=== PATIENT | female | born 1990 | race Caucasian/White ===

== ENCOUNTER → 2016-11-11 | Day surgery (SDC) | payer BC ==
[~2016-11-11] VITALS: Ht 168.9 cm; Wt 110.6 kg
[~2016-11-11] MED LIST: BUPIVACAINE/EPINEPHRINE 0.5% 50 ML VIAL ONE; BUPIVACAINE/EPINEPHRINE 0.5% PF 30 ML VIAL ONE; CHLORHEXIDINE GLUCONATE 2 % 1 PACK (2 CLOTHS) TOPICAL PRN; DEXAMETHASONE SOD PHOS 4 MG/ML VIAL ONE; DO NOT ADM ANY ANTICOAGULANT DRUGS PRN; FAMOTIDINE 20 MG/2 ML VIAL ONE; INSULIN HUMAN REGULAR 1,000 UNITS/10 ML VIAL SQ PRN; KETOROLAC TROMETHAMINE 60 MG/2 ML (IM) VIAL IM ONE; LACTATED RINGER'S 1000 ML INJ 1,000 ML IV SCH; LORTA5 PO; METOPROLOL TARTRATE 25 MG TAB PO PRN; MIDAZOLAM HCL 2 MG/2 ML VIAL ONE; NEOSTIGMINE 3 MG/3 ML SYR IV ONE; ONDANSETRON HCL 4 MG/2 ML VIAL IV PUSH ONE; PERC5TAB12 PO; POVIDONE IODINE 5% (ANTISEPSIS KIT) 4 APPLICATIONS EACH NARE PRN; PROPOFOL 200 MG/20 ML AMP IV ONE; SODIUM CHLORID 0.9% 500 ML IV PRN; fentaNYL CITRATE 250 MCG/5 ML AMP ONE; oxyCODONE/ACETAMINOPHEN 5 MG/325 MG TAB PO PRN
[2016-11-11 06:11] VITALS: BP 125/60; PULSE 65; RESP 20; TEMP 98; O2SAT 97
[2016-11-11 06:43] LABS: AUTOMATED NEUTROPHIL # 2.7 TH/MM3 (1.8-7.7); BASOPHIL % 0.7 % (0.0-2.0); EOSINOPHIL # 0.1 TH/MM3 (0-0.4); HEMATOCRIT 37.8 % (35.0-46.0); HEMO FLAGS DIFF FINAL; LYMPH % 34.1 % (9.0-44.0); LYMPHOCYTE # 1.7 TH/MM3 (1.0-4.8); MEAN CELL VOLUME 82.8 FL (80.0-100.0); MEAN CORPUSCULAR HEMOGLOBIN 28.4 PG (27.0-34.0); MEAN CORPUSCULAR HGB CONC 34.3 % (32.0-36.0); MONO % 8.1 % (0.0-8.0); NEUT % 55.1 % (16.0-70.0); PLATELET COUNT 253 TH/MM3 (150-450); RED BLOOD COUNT 4.57 MIL/MM3 (4.00-5.30); RED CELL DISTRIBUTION WIDTH 13.5 % (11.6-17.2); WHITE BLOOD COUNT 4.8 TH/MM3 (4.0-11.0)
[2016-11-11 07:02] LABS: BETA HCG QUANT LESS THAN 1 MIU/ML (0-5)
--- NOTE | 2016-11-11 08:38 | PD.OP ---
Operative Report Date of Surgery: Nov 11, 2016 Preoperative Diagnosis: (1) Endometriosis determined by laparoscopy Postoperative Diagnosis: (1) Endometriosis determined by laparoscopy Procedure: operative laparoscopy with ablation of endometriosis Anesthesia: general Surgeon: Ismael Brito Contracts Analyst(s): Ismael Lutz MD Nov 11, 2016 08:38
--- NOTE | 2016-11-11 08:43 | HHI.DCPOC ---
Discharge Care Plan Diagnosis: (1) Endometriosis determined by laparoscopy Report Symptoms to Your Doctor -Temperate above 100.5 degrees -Redness, of incision or excessive or foul smelling drainage -Unusual pain or calf pain -Increased vaginal bleeding -Painful or difficulty urinating -Feelings of extreme sadness or anxiety after 2 weeks Goals to Promote Your Health * To prevent worsening of your condition and complications * To maintain your health at the optimal level Directions to Meet Your Goals Take your medications as prescribed Follow your dietary instruction Follow activity as directed Ensure plenty of rest for recovery Drink fluids for hydration Keep your appointments as scheduled Take your immunizations and boosters as scheduled If your symptoms worsen call your PCP, if no PCP go to Urgent Care Center or Emergency Room Smoking is Dangerous to Your Health. Avoid second hand smoke Call the 24-hour crisis hotline for domestic abuse at Ismael Brito MD Nov 11, 2016 08:43
[2016-11-11 09:25] VITALS: BP 127/70; PULSE 61; RESP 16; TEMP 98; O2SAT 96
--- NOTE | 2016-11-13 10:18 | MP ---
cc: GIULIANO BRITO DATE OF SURGERY 11/11/2016 PROCEDURE Operative laparoscopy with ablation of endometriosis. PREOPERATIVE DIAGNOSIS Endometriosis proven by laparoscopy. POSTOPERATIVE DIAGNOSIS Endometriosis proven by laparoscopy. SURGEON Dr. Giuliano Brito ANESTHESIA accounting instructor Sondra Ruvalcaba CRNA COMPLICATIONS None ESTIMATED BLOOD LOSS Less than 10 cc FINDINGS Normal female pelvic anatomy. Appendiceal stump was seen and healing well. Liver was normal and endometriosis seen in the posterior cul-de-sac. PROCEDURE IN DETAIL After informed consent, the patient taken to the operating room where she was placed under general anesthesia and placed in the supine position, legs in the Dick stirrups. The abdomen, perineum and vagina prepped and draped in the normal sterile fashion after adequate anesthesia was assured. Time-out was taken and the bladder was drained. A speculum was placed in the vagina. Cervix grasped with a single-toothed tenaculum. Pesotum uterine manipulator was placed in the cervix. At this point, our gloves were changed and a 5 mm infraumbilical incision was then made, carried sharply into the subcutaneous tissue after injection with 0.25% Marcaine with epinephrine. We entered the abdomen under direct visualization. A suprapubic 5 mm trocar was placed. Findings are as above. Endometriosis in the posterior cul-de-sac was ablated with the spatula monopolar cautery. Good ablation was noted. There is some endometriosis on the left ovary. This was also ablated without difficulty. At the end of the case, there was no visual endometriosis. There was some old scar from previous endometriosis. The patient tolerated the procedure well. She was awaken and taken to recovery room in stable condition. Her incision was assured closed with a simple stitch. MD SELENE Leong/TALHA /8:42 AM /10:13 AM
== END | disposition home or self-care (01) ==
LOC: HSDC 05:29
PROVIDERS: ATTEND Obstetrics & Gynecology
DX: N80.9 Endometriosis, unspecified (principal); N80.1 Endometriosis of ovary
CPT/HCPCS: 00840; 58662; 84702; 85025; J1100; J1885; J2250; J2405; J2710; J3010